=== PATIENT | female | born 1955 | race Caucasian/White ===

== ENCOUNTER 2020-09-26 08:21 | Outpatient (CLI) | payer OTHER | END 2020-09-26 08:32 | disposition home or self-care (01) | LOC: TOM 08:21 | DX: K66.0 Peritoneal adhesions (postprocedural) (postinfection) (principal); R10.32 Left lower quadrant pain; J32.0 Chronic maxillary sinusitis ==

== ENCOUNTER 2025-04-18 09:40 | Outpatient (CLI) | payer OTHER | END 2025-04-18 09:43 | disposition home or self-care (01) | LOC: TOM 09:40 | PROVIDERS: ATTEND Pediatrics | DX: K56.609 Unspecified intestinal obstruction, unspecified as to partial versus complete obstruction (principal); Z12.11 Encounter for screening for malignant neoplasm of colon ==